=== PATIENT | female | born 1965 | race Caucasian/White ===

== ENCOUNTER → 2021-03-30 | Outpatient (CLI) | payer SELFPAY ==
[~2021-03-30] MED LIST: BCP'S; KETO10 PO; LEVFLO500 PO; OXYACE5T PO; PROM25 PO; RXOXYACE PO; TRAZ50
== END | disposition home or self-care (01) ==
LOC: LAB SHORT 18:54
DX: N12 Tubulo-interstitial nephritis, not specified as acute or chronic (principal)
CPT/HCPCS: 87077; 87086; 87186

== ENCOUNTER → 2022-06-29 | Outpatient (CLI) | payer OTHER | END | disposition home or self-care (01) | LOC: LAB 08:00 → LAB SHORT 08:00 | DX: N13.2 Hydronephrosis with renal and ureteral calculous obstruction (principal) | CPT/HCPCS: 81050 ==

== ENCOUNTER → 2022-12-27 | Outpatient (CLI) | payer OTHER | LOC: LAB 15:53 → LAB SHORT 15:53 | DX: R31.0 Gross hematuria (principal) | CPT/HCPCS: 87086 ==

== ENCOUNTER → 2023-07-09 | Outpatient (CLI) | payer OTHER | END | disposition home or self-care (01) | LOC: LAB 10:42 → LAB SHORT 10:42 | DX: R10.9 Unspecified abdominal pain (principal) | CPT/HCPCS: 87086 ==

== ENCOUNTER → 2025-01-19 | Outpatient (CLI) | payer SELFPAY ==
[2025-01-24 06:43] LABS: BUPRENORPHINE GLUC,URN,QUANT 62 ng/mL; BUPRENORPHINE,URN,QUANT <2 ng/mL; NALOXONE,URN,QUANT <100 ng/mL; NORBUPRENORPHINE GLUC,UR,QUANT 334 ng/mL; NORBUPRENORPHINE,URN,QUANT 84 ng/mL
== END | disposition home or self-care (01) ==
LOC: LAB 12:31 → LAB SHORT 12:31
PROVIDERS: Physician Assistant
DX: F90.9 Attention-deficit hyperactivity disorder, unspecified type (principal)
CPT/HCPCS: G0480